=== PATIENT | female | born 2000 ===

== ENCOUNTER 2021-05-29 17:58 | Outpatient (REF) | payer BC, SELFPAY ==
[2021-05-29 18:25] LABS: COVID-19 Test Negative (Negative); IDNOW Serial# 08D9AD1C
== END 2021-05-29 17:59 | disposition home or self-care (01) ==
LOC: HO.LNP 17:58
PROVIDERS: Visit Provider Internal Medicine
DX: Z20.822 Contact with and (suspected) exposure to COVID-19 (principal)
CPT/HCPCS: 87635

== ENCOUNTER 2021-07-13 19:25 | Outpatient (REF) | payer BC, SELFPAY ==
[2021-07-13 19:53] LABS: COVID-19 Test Negative (Negative)
== END 2021-07-13 19:26 | disposition home or self-care (01) ==
LOC: HO.LAB 19:25
PROVIDERS: Visit Provider Internal Medicine
DX: Z20.822 Contact with and (suspected) exposure to COVID-19 (principal)
CPT/HCPCS: 87635